=== PATIENT | female | born 1975 | race Caucasian/White ===

== ENCOUNTER 2018-02-18 12:32 | Inpatient (IN) | payer OTHER ==
[2018-02-18 13:52] VITALS: BMI 19.8
--- NOTE | 2018-02-18 14:13 | HP ---
CIWA Score - Admission Criteria [facility] Guidelines: Admission for Medically Managed Detox: Requires at least one of the followin. CIWA greater than 12 2. Seizures within the past 24 hours 3. Delirium tremens within the past 24 hours 4. Hallucinations within the past 24 hours 5. Acute intervention needed for co occurring medical disorder 6. Acute intervention needed for co occurring psychiatric disorder 7. Severe withdrawal that cannot be handled at a lower level of care (continued vomiting, continued diarrhea, abnormal vital signs) requiring intravenous medication and/or fluids 8. Admission ROS [facility] - [facility] Chief Complaint: I was mandated by drug court to seek tx-rehab for a positive drug test ( heroin ) . Allergies/Adverse Reactions: Allergies Allergy/AdvReac Type Severity Reaction Status Date / Time No Known Allergies Allergy Verified 02/18/18 14:19 History of Present Illness: I started using heroin at age 42 with a boyfriend . Then had criminal issues and had to go to drug court . She was then mandated by immigration judge to enter rehab. Exam Limitations: No Limitations - Ebola screening Have you traveled outside of the country in the last 21 days: No (N) Have you had contact with anyone from an Ebola affected area: No Have you been sick,other than usual withdrawal symptoms: No Do you have a fever: No - Review of Systems Constitutional: Malaise EENT: reports: No Symptoms Reported Respiratory: reports: No Symptoms reported Cardiac: reports: No Symptoms Reported GI: reports: No Symptoms Reported : reports: No Symptoms Reported Musculoskeletal: reports: No Symptoms Reported Integumentary: reports: No Symptoms Reported Neuro: reports: Dizziness Endocrine: reports: No Symptoms Reported Hematology: reports: Anemia Psychiatric: reports: Orientated x3, Anxious, Depressed Other Systems: Reviewed and Negative Patient History - Patient Medical History Hx Anemia: Yes (in past ) Hx Asthma: Yes (no meds ) Hx Chronic Obstructive Pulmonary Disease (COPD): No Hx Cancer: No Hx Cardiac Disorders: No Hx Congestive Heart Failure: No Hx Hypertension: No Hx Hypercholesterolemia: No Hx Pacemaker: No HX Cerebrovascular Accident: No Hx Seizures: No Hx Dementia: No Hx Diabetes: No Hx Gastrointestinal Disorders: No Hx Liver Disease: No Hx Genitourinary Disorders: No Hx Sexually Transmitted Disorders: No Hx Renal Disease (ESRD): No Hx Thyroid Disease: No Hx Human Immunodeficiency Virus (HIV): No (neg in 12/2017) Hx Hepatitis C: No Hx Depression: Yes Hx Suicide Attempt: No (effexor, neurontin , welbutrin ) Hx Bipolar Disorder: Yes Hx Schizophrenia: No - Patient Surgical History Past Surgical History: No Anesthesia Reaction: No - PPD History Previous Implant?: Yes Documented Results: Negative w/o proof Implanted On Prior [facility] Admission?: No PPD to be Administered?: Yes - Reproductive History Patient is a Female of Child Bearing Age (11 -55 yrs old): Yes Last Menstrual Period: 02/04/18 LMP comment: normal cycle Patient : No - Smoking Cessation Smoking history: Former smoker Have you smoked in the past 12 months: Yes Aproximately how many cigarettes per day: 7 If you are a former smoker, when did you quit?: july 2017 , now uses E cig's Cigars Per Day: 0 Hx Chewing Tobacco Use: No Initiated information on smoking cessation: Yes 'Breaking Loose' booklet given: 02/18/18 - Substance & Tx. History Hx Alcohol Use: No Hx Substance Use: Yes (heroin ) Substance Use Type: Heroin Hx Substance Use Treatment: Yes ([facility] ) - Substances Abused Heroin Route: Injection Frequency: Daily Amount used: 6-8 bags/d Age of first use: 42 Date of Last Use: 02/04/18 Alcohol Route: Oral Frequency: Daily Amount used: 8 glasses wine /day Age of first use: 14 Date of Last Use: 12/10/16 Family Disease History - Family Disease History Family History: Denies Admission Physical Exam [facility] - Vital Signs Vital Signs: Vital Signs - 24 hr 02/18/18 13:50 Temperature 98.6 F Pulse Rate 64 Respiratory 20 Rate Blood Pressure 107/69 42 y/o thin f pt aox3 ,ambulating in nad cooperative with exam - Physical General Appearance: Yes: No Apparent Distress, Appropriately Dressed, Thin, Anxious HEENTM: Yes: Hearing grossly Normal, Normal ENT Inspection, Normocephalic, Normal Voice, RITA, Pharynx Normal Respiratory: Yes: Within Normal Limits, Chest Non-Tender, Lungs Clear, Normal Breath Sounds, No Respiratory Distress Neck: Yes: Within Normal Limits, No masses,lesions,Nodules, Supple, Trachea in good position Breast: Yes: Breast Exam Deferred Cardiology: Yes: Regular Rhythm, Regular Rate, S1, S2 Abdominal: Yes: Within Normal Limits, Normal Bowel Sounds, Non Tender, Flat, Soft Genitourinary: Yes: Within Normal Limits Back: Yes: Within Normal Limits Musculoskeletal: Yes: Within Normal Limits Extremities: Yes: Within Normal Limits, Normal Inspection, Normal Range of Motion, Non-Tender Neurological: Yes: Within Normal Limits, passenger agent II-XII NML intact, Fully Oriented, Alert, Motor Strength 5/5, Normal Mood/Affect, Normal Response Integumentary: Yes: Within Normal Limits, Other (tattos forearms , ankle and back) Lymphatic: Yes: Within Normal Limits - Diagnostic (1) Opioid dependence on agonist therapy Current Visit: Yes Status: Chronic Comment: pt is on suboxone 8/2mg one strip /d : last day of use was . I Stop verified medication . Cleared for Admission [facility] - Detox or Rehab Claeared for Rehab Admission: Yes [facility] Breath Alcohol Content Breath Alcohol Content: 0 Urine Pregancy Test - Result Urine Test Results: Negative- NO Line Present Urine Drug Screen - Results Drug Screen Negative: No Urine Drug Screen Results: BZO-Benzodiazepines, BUP-Suboxone
[2018-02-18] MEDS ORDERED: MAGNESIUM CITRATE 300 ML BOTTLE PO PRN (14:40)
[2018-02-18] MEDS ORDERED: LOPERAMIDE HCL 2 MG CAPSULE PO PRN (14:40)
[2018-02-18] MEDS ORDERED: ACETAMINOPHEN 325 MG TABLET (FP) PO PRN (14:40)
[2018-02-18] MEDS ORDERED: guaiFENesin/D-METHORPHAN HB 10 ML UNIT-DOSE CUPS PO PRN (14:40)
[2018-02-18] MEDS ORDERED: MAG HYDROX/AL HYDROX/SIMETH 30 ML UNIT-DOSE CUP PO PRN (14:40)
[2018-02-18] MEDS ORDERED: IBUPROFEN 400 MG TABLET (FP) PO PRN (14:40)
[2018-02-18] MEDS ORDERED: P-EPHED 60MG/TRIPROLIDI 2.5MG TABLET PO PRN (14:40)
[2018-02-18] MEDS ORDERED: MAGNESIUM HYDROX 2400MG/30ML ORAL SUSPENSION 30 ML CUP PO PRN (14:40)
[2018-02-18] MEDS ORDERED: BUPRENORPHINE/NALOXONE 8 MG/2 MG FILM PACKET SL ONE (15:45)
[2018-02-18] MEDS ORDERED: TUBERCULIN PPD 5 TU/0.1ML VIAL ID ONE (18:34)
[2018-02-18] MEDS: THIAMINE HCL 100 MG TABLET (FP) PO SCH (21:08)
[2018-02-18] MEDS: MIRTAZAPINE 15 MG TABLET (FP) PO SCH (21:08)
[2018-02-19 01:45] LABS: URINE APPEARANCE CLOUDY; URINE BILIRUBIN NEGATIVE (<2.0 mg/dL); URINE COLOR AMBER; URINE GLUCOSE (UA) NEGATIVE (NEGATIVE); URINE KETONE TRACE (NEGATIVE); URINE LEUK ESTERASE NEGATIVE (NEGATIVE); URINE NITRITE NEGATIVE (NEGATIVE); URINE PROTEIN NEGATIVE (NEGATIVE)
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
[2018-02-19] MEDS: PRENATAL VITAMINS W/ FOLIC ACID TABLET (FP) PO SCH (09:14)
[2018-02-19] MEDS: NICOTINE 7 MG/24 HOURS TOPICAL PATCH TD SCH (09:14)
[2018-02-19] MEDS: BUPRENORPHINE/NALOXONE 8 MG/2 MG FILM PACKET SL SCH (09:15)
[2018-02-19] MEDS: NICOTINE POLACRILEX 2 MG GUM BUC PRN ×2 (09:16→15:09)
[2018-02-19 11:06] LABS: HEMATOCRIT 40.2 % (32.4-45.2); HEMOGLOBIN 12.7 GM/dL (10.7-15.3); MCHC 31.7 g/dl (32.0-36.0); MEAN CELL VOLUME 88.5 fl (80-96); MEAN PLT VOLUME 8.5 fl (7.5-11.1); PLATELET COUNT 386 K/MM3 (134-434); RBC 4.54 M/mm3 (3.60-5.2); RDW 13.5 % (11.6-15.6); WHITE BLOOD COUNT 3.9 K/mm3 (4.0-10.0)
[2018-02-19 11:45] LABS: ALBUMIN 4.2 g/dl (3.4-5.0); ALK PHOS 88 U/L (45-117); ANION GAP 4 MMOL/L (8-16); BILIRUBIN,TOTAL 0.5 mg/dL (0.2-1); BLOOD UREA NITROGEN 12 mg/dL (7-18); CALCIUM 9.7 mg/dL (8.5-10.1); CHLORIDE 105 mmol/L (98-107); CO2 29 mmol/L (21-32); CREATININE 0.8 mg/dL (0.55-1.3); GLUCOSE,RANDOM 92 mg/dL (74-106); SGOT/AST 128 U/L (15-37); SGPT/ALT 158 U/L (13-61); SODIUM 138 mmol/L (136-145); TOT PROT 7.3 g/dl (6.4-8.2)
[2018-02-19] MEDS: VENLAFAXINE HCL 75 MG E.R. CAPSULES (FP) PO SCH (11:52)
[2018-02-19] MEDS: buPROPion HCL 75 MG TABLET PO SCH (11:52)
--- NOTE | 2018-02-19 12:17 | EKG ---
Test Reason : Blood Pressure : / mmHG Vent. Rate : 073 BPM Atrial Rate : 073 BPM P-R Int : 172 ms QRS Dur : 068 ms QT Int : 398 ms P-R-T Axes : 073 076 014 degrees QTc Int : 438 ms NORMAL SINUS RHYTHM SEPTAL INFARCT , AGE UNDETERMINED ABNORMAL ECG NO PREVIOUS ECGS AVAILABLE Confirmed by KATINA WARE, CAMILO ([id number]) on 02/19/2018 12:17:21 PM Referred By: Confirmed By:CAMILO AMBRIZ MD
--- NOTE | 2018-02-19 13:25 | PN ---
[facility] Progress Note Note: Laboratory Tests 02/18/18 02/19/18 02/19/18 22:25 06:00 06:00 WBC 3.9 L RBC 4.54 Hgb 12.7 Hct 40.2 MCV 88.5 MCH 28.0 MCHC 31.7 L RDW 13.5 Plt Count 386 MPV 8.5 Sodium 138 Potassium 5.0 Chloride 105 Carbon Dioxide 29 Anion Gap 4 L BUN 12 Creatinine 0.8 Creat Clearance w eGFR > 60 Random Glucose 92 Calcium 9.7 Total Bilirubin 0.5 AST 128 H ALT 158 H Alkaline Phosphatase 88 Total Protein 7.3 Albumin 4.2 Urine Color Naomy Urine Appearance Cloudy Urine pH 5.0 Ur Specific [place] 1.026 Urine Protein Negative Urine Glucose (UA) Negative Urine Ketones Trace H Urine Blood Negative Urine Nitrite Negative Urine Bilirubin Negative Urine Urobilinogen 2.0 H Ur Leukocyte Esterase Negative RPR Titer 02/19/18 06:00 WBC RBC Hgb Hct MCV MCH MCHC RDW Plt Count MPV Sodium Potassium Chloride Carbon Dioxide Anion Gap BUN Creatinine Creat Clearance w eGFR Random Glucose Calcium Total Bilirubin AST ALT Alkaline Phosphatase Total Protein Albumin Urine Color Urine Appearance Urine pH Ur Specific [place] Urine Protein Urine Glucose (UA) Urine Ketones Urine Blood Urine Nitrite Urine Bilirubin Urine Urobilinogen Ur Leukocyte Esterase RPR Titer Nonreactive Labs appreciated. Will repeat CMP/LFTS in 72 hours. Encourage oral hydration. Continue to monitor clinically.
[2018-02-19] MEDS: GABAPENTIN 400 MG CAPSULE (FP) PO SCH ×2 (13:36→21:37)
[2018-02-19] MEDS: THIAMINE HCL 100 MG TABLET (FP) PO SCH (21:37)
[2018-02-19] MEDS: MIRTAZAPINE 15 MG TABLET (FP) PO SCH (21:37)
[2018-02-19] MEDS ORDERED: MIRTAZAPINE 15 MG TABLET (FP) PO SCH (22:00)
[2018-02-20] MEDS: GABAPENTIN 400 MG CAPSULE (FP) PO SCH ×3 (06:43→21:13)
[2018-02-20] MEDS: NICOTINE POLACRILEX 2 MG GUM BUC PRN ×3 (06:44→18:03)
[2018-02-20] MEDS: VENLAFAXINE HCL 75 MG E.R. CAPSULES (FP) PO SCH (10:04)
[2018-02-20] MEDS: PRENATAL VITAMINS W/ FOLIC ACID TABLET (FP) PO SCH (10:04)
[2018-02-20] MEDS: NICOTINE 7 MG/24 HOURS TOPICAL PATCH TD SCH (10:04)
[2018-02-20] MEDS: BUPRENORPHINE/NALOXONE 8 MG/2 MG FILM PACKET SL SCH (10:04)
[2018-02-20] MEDS: buPROPion HCL 75 MG TABLET PO SCH (10:04)
[2018-02-20] MEDS: THIAMINE HCL 100 MG TABLET (FP) PO SCH (21:13)
[2018-02-20] MEDS: MIRTAZAPINE 15 MG TABLET (FP) PO SCH (21:14)
[2018-02-21] MEDS: GABAPENTIN 400 MG CAPSULE (FP) PO SCH ×3 (06:57→21:00)
[2018-02-21] MEDS: NICOTINE POLACRILEX 2 MG GUM BUC PRN ×4 (07:00→21:01)
[2018-02-21] MEDS: VENLAFAXINE HCL 75 MG E.R. CAPSULES (FP) PO SCH (09:53)
[2018-02-21] MEDS: buPROPion HCL 75 MG TABLET PO SCH (09:54)
[2018-02-21] MEDS: PRENATAL VITAMINS W/ FOLIC ACID TABLET (FP) PO SCH (09:54)
[2018-02-21] MEDS: NICOTINE 7 MG/24 HOURS TOPICAL PATCH TD SCH (09:54)
[2018-02-21] MEDS: BUPRENORPHINE/NALOXONE 8 MG/2 MG FILM PACKET SL SCH (09:54)
[2018-02-21] MEDS: THIAMINE HCL 100 MG TABLET (FP) PO SCH (21:00)
[2018-02-21] MEDS: MIRTAZAPINE 15 MG TABLET (FP) PO SCH (21:00)
[2018-02-22] MEDS: GABAPENTIN 400 MG CAPSULE (FP) PO SCH ×3 (06:50→21:06)
[2018-02-22] MEDS: NICOTINE POLACRILEX 2 MG GUM BUC PRN ×4 (06:51→21:06)
[2018-02-22] MEDS: VENLAFAXINE HCL 75 MG E.R. CAPSULES (FP) PO SCH (10:20)
[2018-02-22] MEDS: PRENATAL VITAMINS W/ FOLIC ACID TABLET (FP) PO SCH (10:20)
[2018-02-22] MEDS: buPROPion HCL 75 MG TABLET PO SCH (10:20)
[2018-02-22] MEDS: BUPRENORPHINE/NALOXONE 8 MG/2 MG FILM PACKET SL SCH (10:20)
[2018-02-22] MEDS: NICOTINE 7 MG/24 HOURS TOPICAL PATCH TD SCH (10:20)
[2018-02-22 10:44] LABS: ALBUMIN 3.1 g/dl (3.4-5.0); ALK PHOS 59 U/L (45-117); ANION GAP 4 MMOL/L (8-16); BILIRUBIN,TOTAL 0.3 mg/dL (0.2-1); BLOOD UREA NITROGEN 16 mg/dL (7-18); CALCIUM 8.2 mg/dL (8.5-10.1); CHLORIDE 106 mmol/L (98-107); CO2 31 mmol/L (21-32); CREATININE 0.7 mg/dL (0.55-1.3); GLUCOSE,RANDOM 129 mg/dL (74-106); POTASSIUM 4.2 mmol/L (3.5-5.1); SGOT/AST 59 U/L (15-37); SGPT/ALT 91 U/L (13-61); SODIUM 141 mmol/L (136-145); TOT PROT 5.6 g/dl (6.4-8.2)
[2018-02-22] MEDS: MIRTAZAPINE 15 MG TABLET (FP) PO SCH (21:06)
[2018-02-22] MEDS: THIAMINE HCL 100 MG TABLET (FP) PO SCH (21:06)
[2018-02-23] MEDS: NICOTINE POLACRILEX 2 MG GUM BUC PRN ×3 (06:41→21:18)
[2018-02-23] MEDS: GABAPENTIN 400 MG CAPSULE (FP) PO SCH ×3 (06:41→21:16)
[2018-02-23] MEDS: VENLAFAXINE HCL 75 MG E.R. CAPSULES (FP) PO SCH (10:04)
[2018-02-23] MEDS: PRENATAL VITAMINS W/ FOLIC ACID TABLET (FP) PO SCH (10:04)
[2018-02-23] MEDS: BUPRENORPHINE/NALOXONE 8 MG/2 MG FILM PACKET SL SCH (10:04)
[2018-02-23] MEDS: buPROPion HCL 75 MG TABLET PO SCH (10:04)
[2018-02-23] MEDS: NICOTINE 7 MG/24 HOURS TOPICAL PATCH TD SCH (10:05)
[2018-02-23] MEDS: THIAMINE HCL 100 MG TABLET (FP) PO SCH (21:16)
[2018-02-23] MEDS: MIRTAZAPINE 15 MG TABLET (FP) PO SCH (21:16)
[2018-02-24] MEDS: GABAPENTIN 400 MG CAPSULE (FP) PO SCH ×3 (06:34→21:01)
[2018-02-24] MEDS: NICOTINE POLACRILEX 2 MG GUM BUC PRN ×4 (06:36→21:02)
[2018-02-24] MEDS: BUPRENORPHINE/NALOXONE 8 MG/2 MG FILM PACKET SL SCH (09:56)
[2018-02-24] MEDS: PRENATAL VITAMINS W/ FOLIC ACID TABLET (FP) PO SCH (09:56)
[2018-02-24] MEDS: NICOTINE 7 MG/24 HOURS TOPICAL PATCH TD SCH (09:56)
[2018-02-24] MEDS: buPROPion HCL 75 MG TABLET PO SCH (09:56)
[2018-02-24] MEDS: VENLAFAXINE HCL 75 MG E.R. CAPSULES (FP) PO SCH (09:56)
[2018-02-24] MEDS: MIRTAZAPINE 15 MG TABLET (FP) PO SCH (21:01)
[2018-02-24] MEDS: THIAMINE HCL 100 MG TABLET (FP) PO SCH (21:01)
[2018-02-25] MEDS: NICOTINE POLACRILEX 2 MG GUM BUC PRN ×2 (06:28→09:43)
[2018-02-25] MEDS: GABAPENTIN 400 MG CAPSULE (FP) PO SCH ×3 (06:28→21:08)
[2018-02-25] MEDS: PRENATAL VITAMINS W/ FOLIC ACID TABLET (FP) PO SCH (09:41)
[2018-02-25] MEDS: NICOTINE 7 MG/24 HOURS TOPICAL PATCH TD SCH (09:41)
[2018-02-25] MEDS: buPROPion HCL 75 MG TABLET PO SCH (09:41)
[2018-02-25] MEDS: VENLAFAXINE HCL 75 MG E.R. CAPSULES (FP) PO SCH (09:41)
--- NOTE | 2018-02-25 12:07 | PN ---
[facility] Progress Note (SOAP) Subjective: Patient requested to see a provider about her Suboxone dose. She is not having any withdrawal symptoms but is having cravings to use. She is seen and followed by Dr. Loaiza at [facility] through court program. Objective: 02/25/18 12:00 Patient is seen lying down in bed. AOx3. No outward signs of withdrawal. Reports a history of recently (Last December) starting to use heroin IV because of her boyfriend. No preceding opioid/pill misuse. AUD in her 20's and 30's. Daily drinker of jug of wine. Last drink "a year ago" . No cravings to drink. Denies other substance use except for tobacco. Other notes read and appreciated. Started on 8mg of Suboxone as an outpatient at [facility]. Mandated to treatment through court system. Labs noted. NTD at this time. CMP Sodium 141 mmol/L (136-145) 02/22/18 08:30 Potassium 4.2 mmol/L (3.5-5.1) 02/22/18 08:30 Chloride 106 mmol/L (98-107) 02/22/18 08:30 Carbon Dioxide 31 mmol/L (21-32) 02/22/18 08:30 Anion Gap 4 MMOL/L (8-16) L 02/22/18 08:30 BUN 16 mg/dL (7-18) 02/22/18 08:30 Creatinine 0.7 mg/dL (0.55-1.3) 02/22/18 08:30 Creat Clearance w eGFR > 60 (>60) 02/22/18 08:30 Random Glucose 129 mg/dL (74-106) H 02/22/18 08:30 Calcium 8.2 mg/dL (8.5-10.1) L 02/22/18 08:30 Total Bilirubin 0.3 mg/dL (0.2-1) 02/22/18 08:30 AST 59 U/L (15-37) H 02/22/18 08:30 ALT 91 U/L (13-61) H 02/22/18 08:30 Alkaline Phosphatase 59 U/L (45-117) 02/22/18 08:30 Total Protein 5.6 g/dl (6.4-8.2) L 02/22/18 08:30 Albumin 3.1 g/dl (3.4-5.0) L 02/22/18 08:30 02/25/18 12:14 Assessment: 02/25/18 12:07 OUD: Will increase her Suboxone to 12mg a day given cravings to use. Elevated LFT's trending down. Could be secondary to recent binge drinking (not reported). Continue psychiatric meds Long d/w her about need for MATS to prevent relapse. 02/25/18 12:12
[2018-02-25] MEDS: BUPRENORPHINE HCL/NALOXONE 12 MG-3 MG SL FILM PACKET SL SCH (12:55)
[2018-02-25] MEDS ORDERED: COLLOIDAL OATMEAL 1 BAR EACH TP PRN (16:23)
[2018-02-25] MEDS: MIRTAZAPINE 15 MG TABLET (FP) PO SCH (21:08)
[2018-02-25] MEDS: THIAMINE HCL 100 MG TABLET (FP) PO SCH (21:08)
[2018-02-25] MEDS: DOCUSATE SODIUM 100 MG CAPSULE (FP) PO SCH (21:09)
[2018-02-26] MEDS: GABAPENTIN 400 MG CAPSULE (FP) PO SCH ×3 (06:38→21:29)
[2018-02-26] MEDS: NICOTINE POLACRILEX 2 MG GUM BUC PRN ×3 (06:39→18:02)
[2018-02-26] MEDS ORDERED: PT OWN MED DRAWER 7, Y5N ONE (08:54)
[2018-02-26] MEDS: DOCUSATE SODIUM 100 MG CAPSULE (FP) PO SCH ×2 (10:09→21:29)
[2018-02-26] MEDS: PRENATAL VITAMINS W/ FOLIC ACID TABLET (FP) PO SCH (10:09)
[2018-02-26] MEDS: BUPRENORPHINE HCL/NALOXONE 12 MG-3 MG SL FILM PACKET SL SCH (10:09)
[2018-02-26] MEDS: buPROPion HCL 75 MG TABLET PO SCH (10:09)
[2018-02-26] MEDS: VENLAFAXINE HCL 75 MG E.R. CAPSULES (FP) PO SCH (10:09)
[2018-02-26] MEDS: NICOTINE 7 MG/24 HOURS TOPICAL PATCH TD SCH (10:11)
[2018-02-26] MEDS: MIRTAZAPINE 15 MG TABLET (FP) PO SCH (21:29)
[2018-02-26] MEDS: THIAMINE HCL 100 MG TABLET (FP) PO SCH (21:29)
[2018-02-27] MEDS: GABAPENTIN 400 MG CAPSULE (FP) PO SCH ×3 (06:36→21:22)
[2018-02-27] MEDS: NICOTINE POLACRILEX 2 MG GUM BUC PRN ×3 (06:38→21:23)
[2018-02-27] MEDS: buPROPion HCL 75 MG TABLET PO SCH (10:16)
[2018-02-27] MEDS: BUPRENORPHINE HCL/NALOXONE 12 MG-3 MG SL FILM PACKET SL SCH (10:16)
[2018-02-27] MEDS: NICOTINE 7 MG/24 HOURS TOPICAL PATCH TD SCH (10:16)
[2018-02-27] MEDS: DOCUSATE SODIUM 100 MG CAPSULE (FP) PO SCH ×2 (10:16→21:22)
[2018-02-27] MEDS: PRENATAL VITAMINS W/ FOLIC ACID TABLET (FP) PO SCH (10:16)
[2018-02-27] MEDS: VENLAFAXINE HCL 75 MG E.R. CAPSULES (FP) PO SCH (10:17)
[2018-02-27] MEDS: MIRTAZAPINE 15 MG TABLET (FP) PO SCH (21:22)
[2018-02-27] MEDS: THIAMINE HCL 100 MG TABLET (FP) PO SCH (21:22)
[2018-02-28] MEDS: GABAPENTIN 400 MG CAPSULE (FP) PO SCH ×3 (06:33→21:20)
[2018-02-28] MEDS: BUPRENORPHINE HCL/NALOXONE 12 MG-3 MG SL FILM PACKET SL SCH (10:00)
[2018-02-28] MEDS: VENLAFAXINE HCL 75 MG E.R. CAPSULES (FP) PO SCH (10:00)
[2018-02-28] MEDS: PRENATAL VITAMINS W/ FOLIC ACID TABLET (FP) PO SCH (10:01)
[2018-02-28] MEDS: NICOTINE 7 MG/24 HOURS TOPICAL PATCH TD SCH (10:01)
[2018-02-28] MEDS: DOCUSATE SODIUM 100 MG CAPSULE (FP) PO SCH ×2 (10:01→21:20)
[2018-02-28] MEDS: buPROPion HCL 75 MG TABLET PO SCH (10:01)
[2018-02-28] MEDS: NICOTINE POLACRILEX 2 MG GUM BUC PRN (15:11)
[2018-02-28] MEDS: THIAMINE HCL 100 MG TABLET (FP) PO SCH (21:19)
[2018-02-28] MEDS: MIRTAZAPINE 15 MG TABLET (FP) PO SCH (21:20)
[2018-03-01] MEDS: NICOTINE POLACRILEX 2 MG GUM BUC PRN ×3 (06:34→14:02)
[2018-03-01] MEDS: GABAPENTIN 400 MG CAPSULE (FP) PO SCH ×3 (06:34→21:35)
[2018-03-01] MEDS: BUPRENORPHINE HCL/NALOXONE 12 MG-3 MG SL FILM PACKET SL SCH (10:02)
[2018-03-01] MEDS: PRENATAL VITAMINS W/ FOLIC ACID TABLET (FP) PO SCH (10:02)
[2018-03-01] MEDS: DOCUSATE SODIUM 100 MG CAPSULE (FP) PO SCH ×2 (10:02→21:35)
[2018-03-01] MEDS: VENLAFAXINE HCL 75 MG E.R. CAPSULES (FP) PO SCH (10:03)
[2018-03-01] MEDS: buPROPion HCL 75 MG TABLET PO SCH (10:03)
[2018-03-01] MEDS: NICOTINE 7 MG/24 HOURS TOPICAL PATCH TD SCH (10:04)
[2018-03-01] MEDS: THIAMINE HCL 100 MG TABLET (FP) PO SCH (21:35)
[2018-03-01] MEDS: MIRTAZAPINE 15 MG TABLET (FP) PO SCH (21:35)
[2018-03-02] MEDS: NICOTINE POLACRILEX 2 MG GUM BUC PRN ×2 (06:41→10:17)
[2018-03-02] MEDS: GABAPENTIN 400 MG CAPSULE (FP) PO SCH ×3 (06:41→21:31)
[2018-03-02] MEDS: VENLAFAXINE HCL 75 MG E.R. CAPSULES (FP) PO SCH (10:16)
[2018-03-02] MEDS: DOCUSATE SODIUM 100 MG CAPSULE (FP) PO SCH ×2 (10:16→21:31)
[2018-03-02] MEDS: PRENATAL VITAMINS W/ FOLIC ACID TABLET (FP) PO SCH (10:16)
[2018-03-02] MEDS: NICOTINE 7 MG/24 HOURS TOPICAL PATCH TD SCH (10:16)
[2018-03-02] MEDS: BUPRENORPHINE HCL/NALOXONE 12 MG-3 MG SL FILM PACKET SL SCH (10:17)
[2018-03-02] MEDS: buPROPion HCL 75 MG TABLET PO SCH (10:17)
[2018-03-02] MEDS ORDERED: PT OWN MED DRAWER 7, Y5N ONE (10:30)
[2018-03-02] MEDS: MIRTAZAPINE 15 MG TABLET (FP) PO SCH (21:31)
[2018-03-02] MEDS: THIAMINE HCL 100 MG TABLET (FP) PO SCH (21:31)
[2018-03-03] MEDS: GABAPENTIN 400 MG CAPSULE (FP) PO SCH ×3 (06:26→21:12)
[2018-03-03] MEDS: NICOTINE POLACRILEX 2 MG GUM BUC PRN ×2 (06:26→10:03)
[2018-03-03] MEDS: DOCUSATE SODIUM 100 MG CAPSULE (FP) PO SCH ×2 (10:03→21:13)
[2018-03-03] MEDS: BUPRENORPHINE HCL/NALOXONE 12 MG-3 MG SL FILM PACKET SL SCH (10:03)
[2018-03-03] MEDS: buPROPion HCL 75 MG TABLET PO SCH (10:03)
[2018-03-03] MEDS: VENLAFAXINE HCL 75 MG E.R. CAPSULES (FP) PO SCH (10:03)
[2018-03-03] MEDS: PRENATAL VITAMINS W/ FOLIC ACID TABLET (FP) PO SCH (10:03)
[2018-03-03] MEDS: NICOTINE 7 MG/24 HOURS TOPICAL PATCH TD SCH (10:03)
[2018-03-03] MEDS: MIRTAZAPINE 15 MG TABLET (FP) PO SCH (21:12)
[2018-03-03] MEDS: THIAMINE HCL 100 MG TABLET (FP) PO SCH (21:13)
[2018-03-04] MEDS: GABAPENTIN 400 MG CAPSULE (FP) PO SCH ×3 (06:34→21:17)
[2018-03-04] MEDS: NICOTINE POLACRILEX 2 MG GUM BUC PRN ×2 (06:34→21:19)
[2018-03-04] MEDS: BUPRENORPHINE HCL/NALOXONE 12 MG-3 MG SL FILM PACKET SL SCH (10:19)
[2018-03-04] MEDS: buPROPion HCL 75 MG TABLET PO SCH (10:20)
[2018-03-04] MEDS: VENLAFAXINE HCL 75 MG E.R. CAPSULES (FP) PO SCH (10:20)
[2018-03-04] MEDS: PRENATAL VITAMINS W/ FOLIC ACID TABLET (FP) PO SCH (10:20)
[2018-03-04] MEDS: DOCUSATE SODIUM 100 MG CAPSULE (FP) PO SCH ×2 (10:20→21:17)
[2018-03-04] MEDS: NICOTINE 7 MG/24 HOURS TOPICAL PATCH TD SCH (10:21)
[2018-03-04] MEDS: THIAMINE HCL 100 MG TABLET (FP) PO SCH (21:17)
[2018-03-04] MEDS: MIRTAZAPINE 15 MG TABLET (FP) PO SCH (21:17)
[2018-03-04] MEDS: MELATONIN 5 MG TABLETS PO PRN (21:18)
[2018-03-05] MEDS: NICOTINE POLACRILEX 2 MG GUM BUC PRN ×2 (06:23→10:17)
[2018-03-05] MEDS: GABAPENTIN 400 MG CAPSULE (FP) PO SCH ×3 (06:23→21:48)
[2018-03-05] MEDS: DOCUSATE SODIUM 100 MG CAPSULE (FP) PO SCH ×2 (10:16→21:48)
[2018-03-05] MEDS: PRENATAL VITAMINS W/ FOLIC ACID TABLET (FP) PO SCH (10:16)
[2018-03-05] MEDS: buPROPion HCL 75 MG TABLET PO SCH (10:16)
[2018-03-05] MEDS: VENLAFAXINE HCL 75 MG E.R. CAPSULES (FP) PO SCH (10:16)
[2018-03-05] MEDS: NICOTINE 7 MG/24 HOURS TOPICAL PATCH TD SCH (10:17)
[2018-03-05] MEDS ORDERED: BUPRENORPHINE/NALOXONE 8 MG/2 MG FILM PACKET SL ONE (10:53)
--- NOTE | 2018-03-05 10:56 | PN ---
[facility] Progress Note Note: SUBOXONE 8 MG/2MG SL RENEWED X 7 DAYS TODAY DOSE ORDERED. Vital Signs 03/05/18 03/05/18 03:30 07:11 Temperature 97.8 F Pulse Rate 69 Respiratory 16 18 Rate Blood Pressure 91/58 L INCREASE PO FLUIDS
[2018-03-05] MEDS ORDERED: BUPRENORPHINE HCL/NALOXONE 12 MG-3 MG SL FILM PACKET SL ONE (11:18)
[2018-03-05] MEDS: THIAMINE HCL 100 MG TABLET (FP) PO SCH (21:48)
[2018-03-05] MEDS: MIRTAZAPINE 15 MG TABLET (FP) PO SCH (21:48)
[2018-03-05] MEDS: MENTHOL/PHENOL 1 EACH UD MM PRN (21:51)
[2018-03-06] MEDS: GABAPENTIN 400 MG CAPSULE (FP) PO SCH ×3 (06:34→22:12)
[2018-03-06] MEDS: NICOTINE POLACRILEX 2 MG GUM BUC PRN ×4 (06:36→22:13)
[2018-03-06] MEDS ORDERED: BUPRENORPHINE/NALOXONE 8 MG/2 MG FILM PACKET SL SCH (10:00)
[2018-03-06] MEDS: VENLAFAXINE HCL 75 MG E.R. CAPSULES (FP) PO SCH (10:18)
[2018-03-06] MEDS: DOCUSATE SODIUM 100 MG CAPSULE (FP) PO SCH ×2 (10:18→22:12)
[2018-03-06] MEDS: buPROPion HCL 75 MG TABLET PO SCH (10:18)
[2018-03-06] MEDS: PRENATAL VITAMINS W/ FOLIC ACID TABLET (FP) PO SCH (10:18)
[2018-03-06] MEDS: BUPRENORPHINE HCL/NALOXONE 12 MG-3 MG SL FILM PACKET SL SCH (10:19)
[2018-03-06] MEDS: NICOTINE 7 MG/24 HOURS TOPICAL PATCH TD SCH (10:19)
[2018-03-06] MEDS: MENTHOL/PHENOL 1 EACH UD MM PRN (10:20)
[2018-03-06] MEDS: MIRTAZAPINE 15 MG TABLET (FP) PO SCH (22:12)
[2018-03-06] MEDS: THIAMINE HCL 100 MG TABLET (FP) PO SCH (22:12)
[2018-03-07] MEDS: GABAPENTIN 400 MG CAPSULE (FP) PO SCH ×3 (06:37→21:20)
[2018-03-07] MEDS: NICOTINE POLACRILEX 2 MG GUM BUC PRN ×4 (06:37→21:21)
[2018-03-07] MEDS: NICOTINE 7 MG/24 HOURS TOPICAL PATCH TD SCH (10:03)
[2018-03-07] MEDS: DOCUSATE SODIUM 100 MG CAPSULE (FP) PO SCH ×2 (10:03→21:20)
[2018-03-07] MEDS: PRENATAL VITAMINS W/ FOLIC ACID TABLET (FP) PO SCH (10:04)
[2018-03-07] MEDS: VENLAFAXINE HCL 75 MG E.R. CAPSULES (FP) PO SCH (10:04)
[2018-03-07] MEDS: BUPRENORPHINE HCL/NALOXONE 12 MG-3 MG SL FILM PACKET SL SCH (10:04)
[2018-03-07] MEDS: buPROPion HCL 75 MG TABLET PO SCH (10:04)
[2018-03-07] MEDS: THIAMINE HCL 100 MG TABLET (FP) PO SCH (21:20)
[2018-03-07] MEDS: MIRTAZAPINE 15 MG TABLET (FP) PO SCH (21:20)
[2018-03-08] MEDS: GABAPENTIN 400 MG CAPSULE (FP) PO SCH ×3 (06:35→21:22)
[2018-03-08] MEDS: NICOTINE POLACRILEX 2 MG GUM BUC PRN ×4 (06:36→20:10)
[2018-03-08] MEDS: PRENATAL VITAMINS W/ FOLIC ACID TABLET (FP) PO SCH (09:56)
[2018-03-08] MEDS: NICOTINE 7 MG/24 HOURS TOPICAL PATCH TD SCH (09:56)
[2018-03-08] MEDS: DOCUSATE SODIUM 100 MG CAPSULE (FP) PO SCH ×2 (09:56→21:23)
[2018-03-08] MEDS: VENLAFAXINE HCL 75 MG E.R. CAPSULES (FP) PO SCH (09:56)
[2018-03-08] MEDS: BUPRENORPHINE HCL/NALOXONE 12 MG-3 MG SL FILM PACKET SL SCH (09:57)
[2018-03-08] MEDS: buPROPion HCL 75 MG TABLET PO SCH (09:57)
[2018-03-08] MEDS: hydrOXYzine PAMOATE 50 MG CAPSULE (FP) PO PRN ×2 (09:58→20:08)
[2018-03-08] MEDS: THIAMINE HCL 100 MG TABLET (FP) PO SCH (21:23)
[2018-03-08] MEDS: MIRTAZAPINE 15 MG TABLET (FP) PO SCH (21:23)
[2018-03-09] MEDS: GABAPENTIN 400 MG CAPSULE (FP) PO SCH ×3 (06:50→21:50)
[2018-03-09] MEDS: NICOTINE POLACRILEX 2 MG GUM BUC PRN ×3 (06:50→14:53)
[2018-03-09] MEDS: hydrOXYzine PAMOATE 50 MG CAPSULE (FP) PO PRN ×2 (08:46→21:50)
[2018-03-09] MEDS: VENLAFAXINE HCL 75 MG E.R. CAPSULES (FP) PO SCH (10:08)
[2018-03-09] MEDS: PRENATAL VITAMINS W/ FOLIC ACID TABLET (FP) PO SCH (10:08)
[2018-03-09] MEDS: DOCUSATE SODIUM 100 MG CAPSULE (FP) PO SCH ×2 (10:08→21:52)
[2018-03-09] MEDS: buPROPion HCL 75 MG TABLET PO SCH (10:08)
[2018-03-09] MEDS: BUPRENORPHINE HCL/NALOXONE 12 MG-3 MG SL FILM PACKET SL SCH (10:08)
[2018-03-09] MEDS: NICOTINE 7 MG/24 HOURS TOPICAL PATCH TD SCH (10:09)
[2018-03-09] MEDS: THIAMINE HCL 100 MG TABLET (FP) PO SCH (21:50)
[2018-03-09] MEDS: MELATONIN 5 MG TABLETS PO PRN (21:50)
[2018-03-09] MEDS: MIRTAZAPINE 15 MG TABLET (FP) PO SCH (21:50)
[2018-03-10] MEDS: GABAPENTIN 400 MG CAPSULE (FP) PO SCH ×3 (07:02→21:54)
[2018-03-10] MEDS: NICOTINE POLACRILEX 2 MG GUM BUC PRN ×3 (07:02→14:48)
[2018-03-10] MEDS: NICOTINE 7 MG/24 HOURS TOPICAL PATCH TD SCH (09:58)
[2018-03-10] MEDS: buPROPion HCL 75 MG TABLET PO SCH (09:59)
[2018-03-10] MEDS: PRENATAL VITAMINS W/ FOLIC ACID TABLET (FP) PO SCH (09:59)
[2018-03-10] MEDS: VENLAFAXINE HCL 75 MG E.R. CAPSULES (FP) PO SCH (09:59)
[2018-03-10] MEDS: BUPRENORPHINE HCL/NALOXONE 12 MG-3 MG SL FILM PACKET SL SCH (10:00)
[2018-03-10] MEDS: hydrOXYzine PAMOATE 50 MG CAPSULE (FP) PO PRN (10:01)
[2018-03-10] MEDS: MIRTAZAPINE 15 MG TABLET (FP) PO SCH (21:54)
[2018-03-10] MEDS: DOCUSATE SODIUM 100 MG CAPSULE (FP) PO SCH (21:54)
[2018-03-10] MEDS: THIAMINE HCL 100 MG TABLET (FP) PO SCH (21:54)
[2018-03-11] MEDS: GABAPENTIN 400 MG CAPSULE (FP) PO SCH ×3 (06:43→21:49)
[2018-03-11] MEDS: NICOTINE POLACRILEX 2 MG GUM BUC PRN ×2 (06:44→14:02)
[2018-03-11] MEDS: hydrOXYzine PAMOATE 50 MG CAPSULE (FP) PO PRN ×2 (06:44→21:49)
[2018-03-11] MEDS: NICOTINE 7 MG/24 HOURS TOPICAL PATCH TD SCH (10:29)
[2018-03-11] MEDS: VENLAFAXINE HCL 75 MG E.R. CAPSULES (FP) PO SCH (10:29)
[2018-03-11] MEDS: BUPRENORPHINE HCL/NALOXONE 12 MG-3 MG SL FILM PACKET SL SCH (10:29)
[2018-03-11] MEDS: buPROPion HCL 75 MG TABLET PO SCH (10:29)
[2018-03-11] MEDS: PRENATAL VITAMINS W/ FOLIC ACID TABLET (FP) PO SCH (10:29)
[2018-03-11] MEDS ORDERED: PT OWN MED DRAWER 7, Y5N ONE (14:01)
[2018-03-11] MEDS: MIRTAZAPINE 15 MG TABLET (FP) PO SCH (21:49)
[2018-03-11] MEDS: DOCUSATE SODIUM 100 MG CAPSULE (FP) PO SCH (21:49)
[2018-03-11] MEDS: THIAMINE HCL 100 MG TABLET (FP) PO SCH (21:49)
[2018-03-12] MEDS: GABAPENTIN 400 MG CAPSULE (FP) PO SCH ×3 (06:25→21:16)
[2018-03-12] MEDS: NICOTINE POLACRILEX 2 MG GUM BUC PRN ×3 (06:26→14:02)
[2018-03-12] MEDS: buPROPion HCL 75 MG TABLET PO SCH (09:57)
[2018-03-12] MEDS: VENLAFAXINE HCL 75 MG E.R. CAPSULES (FP) PO SCH (09:57)
[2018-03-12] MEDS: PRENATAL VITAMINS W/ FOLIC ACID TABLET (FP) PO SCH (09:57)
[2018-03-12] MEDS: NICOTINE 7 MG/24 HOURS TOPICAL PATCH TD SCH (10:00)
[2018-03-12] MEDS: BUPRENORPHINE HCL/NALOXONE 12 MG-3 MG SL FILM PACKET SL SCH (10:41)
[2018-03-12] MEDS: THIAMINE HCL 100 MG TABLET (FP) PO SCH (21:16)
[2018-03-12] MEDS: MIRTAZAPINE 15 MG TABLET (FP) PO SCH (21:16)
[2018-03-12] MEDS: DOCUSATE SODIUM 100 MG CAPSULE (FP) PO SCH (21:16)
[2018-03-12] MEDS: hydrOXYzine PAMOATE 50 MG CAPSULE (FP) PO PRN (21:16)
[2018-03-13] MEDS: GABAPENTIN 400 MG CAPSULE (FP) PO SCH ×3 (06:47→21:34)
[2018-03-13] MEDS: PRENATAL VITAMINS W/ FOLIC ACID TABLET (FP) PO SCH (10:21)
[2018-03-13] MEDS: VENLAFAXINE HCL 75 MG E.R. CAPSULES (FP) PO SCH (10:21)
[2018-03-13] MEDS: buPROPion HCL 75 MG TABLET PO SCH (10:21)
[2018-03-13] MEDS: BUPRENORPHINE HCL/NALOXONE 12 MG-3 MG SL FILM PACKET SL SCH (10:21)
[2018-03-13] MEDS: hydrOXYzine PAMOATE 50 MG CAPSULE (FP) PO PRN (10:22)
[2018-03-13] MEDS: NICOTINE 7 MG/24 HOURS TOPICAL PATCH TD SCH (10:23)
[2018-03-13] MEDS: NICOTINE POLACRILEX 2 MG GUM BUC PRN ×3 (10:24→17:35)
[2018-03-13] MEDS: DOCUSATE SODIUM 100 MG CAPSULE (FP) PO SCH (21:34)
[2018-03-13] MEDS: THIAMINE HCL 100 MG TABLET (FP) PO SCH (21:34)
[2018-03-13] MEDS: MIRTAZAPINE 15 MG TABLET (FP) PO SCH (21:34)
[2018-03-14] MEDS: GABAPENTIN 400 MG CAPSULE (FP) PO SCH ×3 (06:53→21:23)
[2018-03-14] MEDS: PRENATAL VITAMINS W/ FOLIC ACID TABLET (FP) PO SCH (10:12)
[2018-03-14] MEDS: BUPRENORPHINE HCL/NALOXONE 12 MG-3 MG SL FILM PACKET SL SCH (10:12)
[2018-03-14] MEDS: VENLAFAXINE HCL 75 MG E.R. CAPSULES (FP) PO SCH (10:12)
[2018-03-14] MEDS: buPROPion HCL 75 MG TABLET PO SCH (10:12)
[2018-03-14] MEDS: NICOTINE POLACRILEX 2 MG GUM BUC PRN ×2 (10:13→15:09)
[2018-03-14] MEDS: NICOTINE 7 MG/24 HOURS TOPICAL PATCH TD SCH (10:14)
[2018-03-14] MEDS: DOCUSATE SODIUM 100 MG CAPSULE (FP) PO SCH (21:23)
[2018-03-14] MEDS: hydrOXYzine PAMOATE 50 MG CAPSULE (FP) PO PRN (21:23)
[2018-03-14] MEDS: MELATONIN 5 MG TABLETS PO PRN (21:23)
[2018-03-14] MEDS: MIRTAZAPINE 15 MG TABLET (FP) PO SCH (21:23)
[2018-03-14] MEDS: THIAMINE HCL 100 MG TABLET (FP) PO SCH (21:23)
[2018-03-15] MEDS: GABAPENTIN 400 MG CAPSULE (FP) PO SCH ×3 (07:07→21:29)
[2018-03-15] MEDS: buPROPion HCL 75 MG TABLET PO SCH (10:16)
[2018-03-15] MEDS: NICOTINE 7 MG/24 HOURS TOPICAL PATCH TD SCH (10:16)
[2018-03-15] MEDS: BUPRENORPHINE HCL/NALOXONE 12 MG-3 MG SL FILM PACKET SL SCH (10:16)
[2018-03-15] MEDS: VENLAFAXINE HCL 75 MG E.R. CAPSULES (FP) PO SCH (10:17)
[2018-03-15] MEDS: NICOTINE POLACRILEX 2 MG GUM BUC PRN ×2 (10:17→13:37)
[2018-03-15] MEDS: PRENATAL VITAMINS W/ FOLIC ACID TABLET (FP) PO SCH (10:17)
[2018-03-15] MEDS: DOCUSATE SODIUM 100 MG CAPSULE (FP) PO SCH (21:29)
[2018-03-15] MEDS: MELATONIN 5 MG TABLETS PO PRN (21:29)
[2018-03-15] MEDS: MIRTAZAPINE 15 MG TABLET (FP) PO SCH (21:29)
[2018-03-15] MEDS: hydrOXYzine PAMOATE 50 MG CAPSULE (FP) PO PRN (21:29)
[2018-03-15] MEDS: THIAMINE HCL 100 MG TABLET (FP) PO SCH (21:29)
[2018-03-16] MEDS: GABAPENTIN 400 MG CAPSULE (FP) PO SCH ×3 (06:28→21:25)
[2018-03-16] MEDS: VENLAFAXINE HCL 75 MG E.R. CAPSULES (FP) PO SCH (10:15)
[2018-03-16] MEDS: buPROPion HCL 75 MG TABLET PO SCH (10:15)
[2018-03-16] MEDS: PRENATAL VITAMINS W/ FOLIC ACID TABLET (FP) PO SCH (10:15)
[2018-03-16] MEDS: BUPRENORPHINE HCL/NALOXONE 12 MG-3 MG SL FILM PACKET SL SCH (10:15)
[2018-03-16] MEDS: NICOTINE 7 MG/24 HOURS TOPICAL PATCH TD SCH (10:16)
[2018-03-16] MEDS: NICOTINE POLACRILEX 2 MG GUM BUC PRN ×2 (10:21→13:41)
[2018-03-16] MEDS: THIAMINE HCL 100 MG TABLET (FP) PO SCH (21:25)
[2018-03-16] MEDS: DOCUSATE SODIUM 100 MG CAPSULE (FP) PO SCH (21:25)
[2018-03-16] MEDS: MIRTAZAPINE 15 MG TABLET (FP) PO SCH (21:25)
[2018-03-17] MEDS: NICOTINE POLACRILEX 2 MG GUM BUC PRN ×4 (06:30→21:21)
[2018-03-17] MEDS: GABAPENTIN 400 MG CAPSULE (FP) PO SCH ×3 (06:30→21:20)
[2018-03-17] MEDS: NICOTINE 7 MG/24 HOURS TOPICAL PATCH TD SCH (10:02)
[2018-03-17] MEDS: buPROPion HCL 75 MG TABLET PO SCH (10:04)
[2018-03-17] MEDS: VENLAFAXINE HCL 75 MG E.R. CAPSULES (FP) PO SCH (10:04)
[2018-03-17] MEDS: BUPRENORPHINE HCL/NALOXONE 12 MG-3 MG SL FILM PACKET SL SCH (10:04)
[2018-03-17] MEDS: PRENATAL VITAMINS W/ FOLIC ACID TABLET (FP) PO SCH (10:04)
--- NOTE | 2018-03-17 12:36 | PN ---
[facility] Progress Note Note: PT COMPLETING REHAB AND FOR DISCHARGE TOMORROW TO [facility]. WILL CONTINUE SUBOXONE TREATMENT AT [facility]. REPORTS MEDICALLY STABLE. ALERT O X 3. IN NAD. SUBOXONE 12 MG/3 MG SL #7 ELECTRONICALLY SENT TO PT'S PHARMACY AT [facility] FOR CLERK TRAVEL RESERVATIONS AFTER DISCHARGE TOMORROW. PT REPORTS SHE HAS A NEW PCP THAT SHE WILL NOW FOLOW UP WITH AFTER DISCHARGE BUT DOES NOT KNOW THE NAME OF HER PROVIDER WHEN ASKED. Vital Signs 03/17/18 07:01 Temperature 98.1 F Pulse Rate 74 Respiratory 16 Rate Blood Pressure 94/59 L Laboratory Tests 02/18/18 02/19/18 02/19/18 22:25 06:00 06:00 WBC 3.9 L RBC 4.54 Hgb 12.7 Hct 40.2 MCV 88.5 MCH 28.0 MCHC 31.7 L RDW 13.5 Plt Count 386 MPV 8.5 Sodium 138 Potassium 5.0 Chloride 105 Carbon Dioxide 29 Anion Gap 4 L BUN 12 Creatinine 0.8 Creat Clearance w eGFR > 60 Random Glucose 92 Calcium 9.7 Total Bilirubin 0.5 AST 128 H ALT 158 H Alkaline Phosphatase 88 Total Protein 7.3 Albumin 4.2 Urine Color Naomy Urine Appearance Cloudy Urine pH 5.0 Ur Specific [place] 1.026 Urine Protein Negative Urine Glucose (UA) Negative Urine Ketones Trace H Urine Blood Negative Urine Nitrite Negative Urine Bilirubin Negative Urine Urobilinogen 2.0 H Ur Leukocyte Esterase Negative RPR Titer 02/19/18 02/22/18 06:00 08:30 WBC RBC Hgb Hct MCV MCH MCHC RDW Plt Count MPV Sodium 141 Potassium 4.2 Chloride 106 Carbon Dioxide 31 Anion Gap 4 L BUN 16 Creatinine 0.7 Creat Clearance w eGFR > 60 Random Glucose 129 H Calcium 8.2 L Total Bilirubin 0.3 AST 59 H ALT 91 H Alkaline Phosphatase 59 Total Protein 5.6 L Albumin 3.1 L Urine Color Urine Appearance Urine pH Ur Specific [place] Urine Protein Urine Glucose (UA) Urine Ketones Urine Blood Urine Nitrite Urine Bilirubin Urine Urobilinogen Ur Leukocyte Esterase RPR Titer Nonreactive PLAN: FOLLOW UP AT [facility] FOR CD AFTERCARE TREATMENT ABOVE WITH DR. MULLEN F/U WITH PCP/[facility] FOR MEDICAL MANAGEMENT.
[2018-03-17] MEDS: MIRTAZAPINE 15 MG TABLET (FP) PO SCH (21:20)
[2018-03-17] MEDS: THIAMINE HCL 100 MG TABLET (FP) PO SCH (21:20)
[2018-03-17] MEDS: DOCUSATE SODIUM 100 MG CAPSULE (FP) PO SCH (21:20)
[2018-03-18] MEDS ORDERED: BUPRENORPHINE HCL/NALOXONE 12 MG-3 MG SL FILM PACKET SL SCH (06:00)
[2018-03-18] MEDS: GABAPENTIN 400 MG CAPSULE (FP) PO SCH (06:40)
[2018-03-18 06:43] VITALS: BP 99/67; PULSE 79; TEMP 97.3
[2018-03-18] MEDS: VENLAFAXINE HCL 75 MG E.R. CAPSULES (FP) PO SCH (09:29)
[2018-03-18] MEDS: PRENATAL VITAMINS W/ FOLIC ACID TABLET (FP) PO SCH (09:29)
[2018-03-18] MEDS: NICOTINE 7 MG/24 HOURS TOPICAL PATCH TD SCH (09:29)
[2018-03-18] MEDS: buPROPion HCL 75 MG TABLET PO SCH (09:30)
--- NOTE | 2018-03-18 09:43 | PN ---
Psychiatric Progress Note Vital Signs: Vital Signs Period Temp Pulse Resp BP Sys/Watson Pulse Ox Last 24 Hr 97.3 F 79 16-18 99/67 Date of Session: 03/18/18 Chief Complaint:: Discharge visit HPI: Patient addressed Alcohol,Opioid and Cocaine dependence comorbid with PTSD. ROS: Anemia,BA,Eating disorder. Current Medications: Active Medications Generic Name Dose Route Start Last Admin Trade Name Freq PRN Reason Stop Dose Admin Acetaminophen 650 mg 02/18/18 14:40 03/10/18 14:47 Tylenol - PO 650 mg Q4H PRN Administration FEVER Al Hydroxide/Mg Hydroxide 30 ml 02/18/18 14:40 Mylanta Oral Suspension - PO Q6H PRN DYSPEPSIA Buprenorphine/Naloxone 1 each 03/18/18 06:00 03/18/18 06:40 Suboxone 12 Mg-3 Mg Sl Film SL 03/19/18 10:29 1 each DAILY@0600 CHLOE Administration Bupropion HCl 75 mg 02/19/18 11:30 03/18/18 09:30 Wellbutrin - PO 75 mg DAILY CHLOE Administration Colloidal Oatmeal 1 applic 02/25/18 16:23 03/02/18 10:19 Aveeno Soap - TP 1 bar DAILY PRN Administration HYGEINE Docusate Sodium 300 mg 03/09/18 22:00 03/17/18 21:20 Colace - PO 300 mg HS CHLOE Administration Eucalyptus/Menthol/Phenol/Sorbitol 1 each 02/18/18 14:40 03/06/18 10:20 Cepastat Lozenge - MM 1 each Q4H PRN Administration SORE THROAT Gabapentin 400 mg 02/19/18 14:00 03/18/18 06:40 Neurontin - PO 400 mg TID CHLOE Administration Guaifenesin 10 ml 02/18/18 14:40 Robitussin Dm - PO Q6H PRN COUGH Hydroxyzine Pamoate 50 mg 03/05/18 15:33 03/15/18 21:29 Vistaril - PO 50 mg Q4H PRN Administration FOR ITCHING Ibuprofen 400 mg 02/18/18 14:40 Motrin - PO Q6H PRN Pain level 4-6 Loperamide HCl 4 mg 02/18/18 14:40 Imodium - PO Q6H PRN DIARRHEA Magnesium Citrate 300 ml 02/18/18 14:40 Citroma - PO Q48H PRN CONSTIPATION Magnesium Hydroxide 30 ml 02/18/18 14:40 Milk Of Magnesia - PO DAILY PRN CONSTIPATION Melatonin 5 mg 02/18/18 22:00 03/15/18 21:29 Melatonin PO 5 mg HS PRN Administration INSOMNIA Mirtazapine 15 mg 02/18/18 22:00 03/17/18 21:20 Remeron - PO 15 mg HS CHLOE Administration Nicotine 7 mg 02/19/18 10:00 03/18/18 09:29 Nicoderm Patch - TD Not Given DAILY CHLOE Nicotine Polacrilex 2 mg 02/18/18 14:40 03/17/18 21:21 Nicorette Gum - BUC 2 mg Q2H PRN Administration NICOTINE REPLACEMENT RX Multivit/Folic Acid/Iron 1 tab 02/19/18 10:00 03/18/18 09:29 Vitamins ([facility]) - PO 1 tab DAILY CHLOE Administration Pseudoephedrine/Triprolidine 1 combo 02/18/18 14:40 03/05/18 21:51 Actifed - PO 1 combo TID PRN Administration NASAL CONGESTION Thiamine HCl 100 mg 02/18/18 22:00 03/17/18 21:20 Vitamin B1 - PO 100 mg HS CHLOE Administration Venlafaxine HCl 225 mg 02/19/18 11:50 03/18/18 09:29 Effexor Xr - PO 225 mg DAILY CHLOE Administration Current Side Effect: No Lab tests ordered: No Lab tests reviewed: Yes Provider note:: Patient completed this program today.She has met her treatment goals and will continue to address her issues on outpatient basis at [facility].Patient repors finding that current medications :Effexor XR 225 mg po daily and Neurontin 300 mg po tid help to cope with mood instability. Scripts for 30 days of the above medications provided.Supportive therapy has been provided focusing on relapse prevention. Patient is stable for discharge today. Total face to face time:: 30 Mental Status Exam - Mental Status Exam Alert and Oriented to: Time, Place, Person Cognitive Function: Grossly Intact Patient Appearance: Well Groomed Mood: Euthymic Affect: Appropriate, Mood Congruent, Normal Range Patient Behavior: Cooperative Speech Pattern: Clear Voice Loudness: Normal Thought Process: Goal Oriented Thought Disorder: Not Present Hallucinations: Denies Suicidal Ideation: Denies Homicidal Ideation: Denies Insight/Judgement: Fair Sleep: Fair Appetite: Good Muscle strength/Tone: Normal Gait/Station: Normal Psychiatric Treatment Plan - Problem List (1) Bronchial asthma Current Visit: Yes (2) Opioid dependence on agonist therapy Current Visit: Yes Comment: pt is on suboxone 8/2mg one strip /d : last day of use was . I Stop verified medication . (3) Eating disorder Current Visit: Yes (4) MDD (major depressive disorder) Current Visit: Yes (5) PTSD (post-traumatic stress disorder) Current Visit: Yes (6) Anemia Current Visit: Yes (7) Alcohol dependence Current Visit: No (8) Cocaine dependence Current Visit: No
== END 2018-03-18 09:46 | disposition home or self-care (01) | DRG 772 ==
LOC: YASAS 12:32 → Y3E 15:20
PROVIDERS: ADMIT Psychiatry & Neurology Psychiatry; ATTEND Psychiatry & Neurology Psychiatry
PROC: HZ42ZZZ Group Counseling for Substance Abuse Treatment, Cognitive-Behavioral (ICD-10-PCS; principal; 2018-02-18)
DX: F10.20 Alcohol dependence, uncomplicated (principal); F11.20 Opioid dependence, uncomplicated; F14.20 Cocaine dependence, uncomplicated; F43.10 Post-traumatic stress disorder, unspecified; F50.9 Eating disorder, unspecified; F32.9 Major depressive disorder, single episode, unspecified; J45.909 Unspecified asthma, uncomplicated; R94.5 Abnormal results of liver function studies; Z87.891 Personal history of nicotine dependence
CPT/HCPCS: 36415; 80053; 81003; 85027; 86593; 90853; 93005; 93010